=== PATIENT | female | born 1990 | race Caucasian/White ===

== ENCOUNTER 2020-06-10 15:34 | Emergency (ER) | payer SELFPAY ==
[2020-06-10] MEDS ORDERED: Ondansetron ODT 4 MG TAB ONE (18:25)
== END 2020-06-10 18:40 | disposition home or self-care (01) ==
LOC: ERS 15:34
DX: R11.2 Nausea with vomiting, unspecified (principal); F17.290 Nicotine dependence, other tobacco product, uncomplicated
CPT/HCPCS: 99283; Q0162